=== PATIENT | male | born 1945 | race Hispanic/Latino ===

== ENCOUNTER 2018-12-03 03:02 | Observation (INO) | payer OTHER ==
[~2018-12-03] VITALS: Ht 182.9 cm; Wt 99.2 kg
[2018-12-03] MEDS ORDERED: ONDANSETRON HCL 4 MG/2 ML VIAL ONE (03:54)
[2018-12-03] MEDS ORDERED: SODIUM CHLORIDE 0.9% 1000ML 1,000 ML IV ONE (03:55)
[2018-12-03 04:20] LABS: BASOPHILS % (AUTO) 0.5 % (0.0-5.0); EOSINOPHILS % (AUTO) 0.8 % (0.0-8.0); HEMATOCRIT 47.1 % (42-54); LYMPHOCYTES % (AUTO) 2.8 % (21.0-51.0); MEAN CORPUSCULAR HEMOGLOBIN 32.7 pg (27.0-33.0); MEAN CORPUSCULAR HGB CONC 34.6 g/dL (32.0-36.0); MEAN CORPUSCULAR VOLUME 94.5 fL (79-99); MONOCYTES % (AUTO) 4.7 % (3.0-13.0); NEUTROPHILS % (AUTO) 91.2 % (40.0-77.0); PLATELET COUNT (AUTO) 124 K/uL (130-400); RED BLOOD CELL COUNT(AUTO) 4.98 MIL/uL (4.50-6.20); RED CELL DISTRIBUTION WIDTH 13.4 % (11.0-15.5); WHITE BLOOD COUNT (AUTO) 8.6 K/uL (4.8-10.8)
[2018-12-03 04:25] LABS: APPEARANCE,URINE Clear (CLEAR); BILIRUBIN,URINE Negative (NEGATIVE); COLOR,URINE Yellow (YELLOW); GLUCOSE, URINE (UA) Negative (NEGATIVE); KETONES,URINE Trace mg/dL (NEGATIVE); LEUKOCYTE ESTERASE ,URINE Trace (NEGATIVE); NITRATE,URINE Negative (NEGATIVE); OCCULT BLOOD,URINE Negative (NEGATIVE); PROTEIN,URINE Negative (NEGATIVE)
[2018-12-03] MEDS ORDERED: SODIUM CHLORIDE 0.9% 1000ML 2,000 ML IV ONE (04:25)
[2018-12-03 04:29] LABS: CREATININE 0.9 mg/dL (0.5-1.5); POTASSIUM 3.9 mmol/L (3.5-5.1)
[2018-12-03 04:31] LABS: INR 1.02 (0.85-1.15); PARTIAL THROMBOPLASTIN TIME 24.3 SEC (26.3-35.5); PROTHROMBIN TIME 10.7 SEC (9.6-11.6)
[2018-12-03] MEDS ORDERED: ACETAMINOPHEN EXTRA STRENGTH 500 MG TABLET ONE (04:31)
[2018-12-03 04:34] LABS: BACTERIA,URINE None Seen /HPF (None Seen); RBC,URINE None Seen /HPF (0-1); SQUAMOUS EPITHELIAL CELL,UR Few /HPF (0-2); WBC,URINE 0-1 /HPF (0-1)
[2018-12-03 04:36] LABS: ALBUMIN 3.6 g/dL (3.5-5.0); BILIRUBIN,TOTAL 0.8 mg/dL (0.2-1.0); TOTAL PROTEIN, SERUM 7.1 g/dL (6.0-8.3)
[2018-12-03] MEDS ORDERED: METRONIDAZOLE 500MG/100ML BAG 100 ML ONE (05:16)
[2018-12-03] MEDS ORDERED: ONDANSETRON HCL 4 MG/2 ML VIAL IVP PRN (05:45)
[2018-12-03] MEDS ORDERED: GLUCAGON 1MG KIT 1 MG ML IM PRN ×2 (05:45→09:30)
[2018-12-03] MEDS ORDERED: ACETAMINOPHEN 325 MG TAB PO PRN ×2 (05:45→09:30)
[2018-12-03] MEDS ORDERED: DEXTROSE 50%-WATER 50 ML DISP.SYRIN IV PRN ×2 (05:45→09:30)
[2018-12-03 08:30] VITALS: BP 106/58
[2018-12-03] MEDS ORDERED: TRAM50TA4 PO ×2 (08:46→08:49)
[2018-12-03] MEDS ORDERED: PREG75 PO (08:46)
[2018-12-03] MEDS ORDERED: LEVO125T11 PO (08:46)
[2018-12-03] MEDS ORDERED: METF-444 PO (08:46)
[2018-12-03] MEDS ORDERED: UMEC1DIS IH (08:46)
[2018-12-03] MEDS ORDERED: ROSU10TA28 PO (08:46)
[2018-12-03] MEDS ORDERED: ASPI-555 PO (08:46)
[2018-12-03] MEDS ORDERED: OLME5TAB6 PO (08:46)
[2018-12-03] MEDS ORDERED: IPRA3AMP24 IH (08:46)
[2018-12-03] MEDS ORDERED: CPAP NOTE (08:49)
[2018-12-03] MEDS ORDERED: DiphenhydrAMINE HCL 50 MG/ML VIAL IV PRN (09:30)
[2018-12-03] MEDS ORDERED: LIDOCAINE HCL-MPF 1% 2ML VIAL IJ PRN (09:30)
[2018-12-03] MEDS ORDERED: [UNRECOGNIZED DRUG - OTHER] NOTE SCH (09:30)
[2018-12-03] MEDS ORDERED: ALBUTEROL SULFATE 0.083% 2.5 MG/3 ML INH IH PRN (09:30)
[2018-12-03] MEDS ORDERED: DIPHENHYDRAMINE HCL 25 MG CAPSULE PO PRN (09:30)
[2018-12-03] MEDS ORDERED: POTASSIUM CHLORIDE 20 MEQ ERTAB PO PRN (09:30)
[2018-12-03] MEDS ORDERED: MAG HYDROX/AL HYDROX/SIMETH ES 30 ML SUSP UDCUP PO PRN (09:30)
[2018-12-03] MEDS ORDERED: POTASSIUM CHLORIDE 10% ELIXIR 20 MEQ/15 ML UDCUP PO PRN (09:30)
[2018-12-03] MEDS ORDERED: POTASSIUM CHLORIDE 20MEQ/100ML 100 ML IV PRN (09:30)
[2018-12-03] MEDS: LEVOTHYROXINE 125 MCG TABLET PO SCH (10:58)
[2018-12-03] MEDS: IPRATROPIUM/ALBUTEROL SULFATE 3 ML SOLUTION IH SCH ×3 (11:03→23:11)
[2018-12-03] MEDS ORDERED: INSULIN HUMULIN R 100 UNIT/ML 3ML SQ SCH (11:30)
[2018-12-03 12:00] VITALS: BP 123/69
[2018-12-03] MEDS: INSULIN R PO SS1 SQ SCH ×2 (16:30→21:00)
[2018-12-03] MEDS: SODIUM CHLORIDE 0.9% 1000ML 1,000 ML IV SCH ×2 (17:00→23:45)
[2018-12-03] MEDS: BUDESONIDE 0.5 MG/2 ML INH IH SCH (18:40)
--- NOTE | 2018-12-03 18:55 | NUR ---
NURSING NOTE Received patient from ER at 0830. Stable. No nausea, emesis or diarrhea so far. He was made aware a sample of stool was pending and a nun's hat provided in the restroom but patient removed it and used the toilket instead; unable to collect sample. Patient ws reminded that he needed to use nun's cap to collect stool sample to sent to lab; he verbalized and demonstrated understanding; pending for stool sample to be collected. Dr. Alejandre did her rounds earlier. Patient has been receiving intravenous fluids of normal saline at 125mL/hr to right hand; no issues. Patient at this time states he feels much better. Dr. Alejandre has him under observation status.
[2018-12-03 19:58] VITALS: BP 134/73
[2018-12-03] MEDS ORDERED: ALPRAZOLAM 1 MG TAB ONE (20:39)
[2018-12-03] MEDS: FAMOTIDINE 20MG TAB 20 MG TAB PO SCH (20:53)
[2018-12-03] MEDS ORDERED: ALPRAZOLAM 1 MG TAB PO ONE (22:05)
[2018-12-03 23:07] VITALS: BP 128/71
[2018-12-04 03:27] VITALS: BP 138/68
[2018-12-04] MEDS: SODIUM CHLORIDE 0.9% 1000ML 1,000 ML IV SCH (05:45)
[2018-12-04] MEDS: LEVOTHYROXINE 125 MCG TABLET PO SCH (05:50)
[2018-12-04] MEDS: INSULIN R PO SS1 SQ SCH ×2 (05:50→11:30)
[2018-12-04] MEDS: IPRATROPIUM/ALBUTEROL SULFATE 3 ML SOLUTION IH SCH (06:30)
[2018-12-04] MEDS: BUDESONIDE 0.5 MG/2 ML INH IH SCH (06:30)
--- NOTE | 2018-12-04 06:35 | NUR ---
PATIENT UPDATE Pt slept well overnight. Dr. Alejandre called last night after the pt noted very anxious on rounds and wanting to know if he could have xanax, order received for 1mg tab of xanax which afforded relief of anxiety. Slept well overnight, no diarrhea, no nausea and vomiting. Continues with the ivf of NS at 125 cc's per hour. Spiked a temp of 102.8 at 0400, pt's room hot and he's covered with 2 blankets, cooling measures reinforced. Tylenol gr x given, latest temp at 99.8. No complaints of pain, no signs of congestion, on duonebs tx as per order.
[2018-12-04 08:04] VITALS: BP 137/93
[2018-12-04] MEDS ORDERED: OLMESARTAN MEDOXOMIL 5 MG PO SCH (09:00)
[2018-12-04] MEDS ORDERED: ENOXAPARIN SODIUM 30 MG/0.3 ML SQ SCH (09:00)
[2018-12-04] MEDS ORDERED: NON-FORMULARY MEDICATION 1 EACH (Umeclidinium Brm/Vilanterol Tr (Anoro Ellipta 62.5-25 Mcg IH SCH (09:00)
[2018-12-04] MEDS: FAMOTIDINE 20MG TAB 20 MG TAB PO SCH (09:04)
--- NOTE | 2018-12-04 11:44 | NUR ---
DC HOME DC INSTRUCTIONS GIVEN TO PT AND FAMILY MEMBERS X 2. VERBALIZED UNDERSTANDING. MED REVIEW GIVEN VIA TEACHBACK METHOD. PT HAS NO NEW PRESCRIPTIONS AT THIS TIME. PT VS WNL, [id number]. INBOUND SALES REPRESENTATIVE ACCOMPANYING PT TO VEHICLE.
[2018-12-04 12:00] VITALS: BP 112/57
== END 2018-12-04 11:55 | disposition home or self-care (01) ==
LOC: EDH 03:02 → EDHIP 05:20 → 3DH 08:25
PROVIDERS: ADMIT Internal Medicine; ATTEND Internal Medicine
DX: K52.9 Noninfective gastroenteritis and colitis, unspecified (principal); E86.0 Dehydration; I13.10 Hypertensive heart and chronic kidney disease without heart failure, with stage 1 through stage 4 chronic kidney disease, or unspecified chronic kidney disease; E11.21 Type 2 diabetes mellitus with diabetic nephropathy; E11.22 Type 2 diabetes mellitus with diabetic chronic kidney disease; N18.2 Chronic kidney disease, stage 2 (mild); I50.9 Heart failure, unspecified; E11.51 Type 2 diabetes mellitus with diabetic peripheral angiopathy without gangrene; E11.69 Type 2 diabetes mellitus with other specified complication; E78.1 Pure hyperglyceridemia; E11.618 Type 2 diabetes mellitus with other diabetic arthropathy; E11.65 Type 2 diabetes mellitus with hyperglycemia; E78.2 Mixed hyperlipidemia; G47.33 Obstructive sleep apnea (adult) (pediatric); I25.10 Atherosclerotic heart disease of native coronary artery without angina pectoris; E03.9 Hypothyroidism, unspecified; J30.9 Allergic rhinitis, unspecified; J44.9 Chronic obstructive pulmonary disease, unspecified; M48.061 Spinal stenosis, lumbar region without neurogenic claudication; N40.0 Benign prostatic hyperplasia without lower urinary tract symptoms; Z86.010 Personal history of colon polyps; Z87.891 Personal history of nicotine dependence; Z98.84 Bariatric surgery status; Z79.82 Long term (current) use of aspirin; Z79.899 Other long term (current) drug therapy
CPT/HCPCS: 36415; 71045; 80053; 81001; 82550; 82948 ×5; 83605; 84484; 85025; 85610; 85730; 87040 ×2; 87088; 87804 ×2; 93005; 94640 ×6; 94664; 96361; 96372; 96374; 99284; G0378 ×26; J1650; J2405 ×2; J3490; J7030 ×3

== ENCOUNTER → 2019-01-06 | Outpatient (CLI) | payer OTHER ==
[~2019-01-06] MED LIST: ASPI-555 PO; CPAP NOTE; IPRA3AMP24 IH; LEVO125T11 PO; METF-444 PO; OLME5TAB6 PO; PREG75 PO; ROSU10TA28 PO; TRAM50TA4 PO; UMEC1DIS IH
== END | disposition home or self-care (01) ==
LOC: RAH 14:59
PROVIDERS: ATTEND Neuromusculoskeletal Medicine & OMM
DX: M47.816 Spondylosis without myelopathy or radiculopathy, lumbar region (principal); M41.85 Other forms of scoliosis, thoracolumbar region; M25.78 Osteophyte, vertebrae; M48.07 Spinal stenosis, lumbosacral region
CPT/HCPCS: 72114

== ENCOUNTER → 2019-09-18 | Outpatient (CLI) | payer OTHER ==
[~2019-09-18] MED LIST changes: -ASPI-555 PO; +ASPI-556 PO
== END | disposition home or self-care (01) ==
LOC: RAH 12:13
PROVIDERS: ATTEND Internal Medicine
DX: Z01.810 Encounter for preprocedural cardiovascular examination (principal); R91.8 Other nonspecific abnormal finding of lung field
CPT/HCPCS: 71046

== ENCOUNTER → 2021-06-08 | Outpatient (CLI) | payer OTHER | END | disposition home or self-care (01) | LOC: RAH 11:22 | PROVIDERS: ATTEND Internal Medicine | DX: Z01.811 Encounter for preprocedural respiratory examination (principal); I13.10 Hypertensive heart and chronic kidney disease without heart failure, with stage 1 through stage 4 chronic kidney disease, or unspecified chronic kidney disease; N18.9 Chronic kidney disease, unspecified | CPT/HCPCS: 71046 ==

== ENCOUNTER 2023-03-26 15:55 | Emergency (ER) | payer OTHER ==
[~2023-03-26] VITALS: Ht 182.9 cm; Wt 103.4 kg
[~2023-03-26 15:55] MED LIST changes: +OLME5TAB29 PO; -OLME5TAB6 PO
[2023-03-26] MEDS ORDERED: ACETAMINOPHEN 325 MG TAB ONE (16:45)
[2023-03-26 16:47] VITALS: TEMP 102.7
[2023-03-26] MEDS ORDERED: ACETAMINOPHEN 325 MG TAB PO ONE (17:00)
[2023-03-26 17:24] LABS: BASOPHILS # (AUTO) 0.04 K/uL (0.00-0.20); BASOPHILS % (AUTO) 0.5 % (0.0-5.0); EOSINOPHILS # (AUTO) 0.04 K/uL (0.00-0.70); EOSINOPHILS % (AUTO) 0.5 % (0.0-8.0); HEMATOCRIT 45.9 % (42-54); IMMATURE GRANULOCYTE ABSOLUTE 0.02 K/uL (0-1); LYMPHOCYTES # (AUTO) 0.6 K/uL (1.0-4.8); LYMPHOCYTES % (AUTO) 7.1 % (21.0-51.0); MEAN CORPUSCULAR HEMOGLOBIN 31.1 pg (27.0-33.0); MEAN CORPUSCULAR HGB CONC 34.2 g/dL (32.0-36.0); MEAN CORPUSCULAR VOLUME 90.9 fL (79-99); MONOCYTES # (AUTO) 0.6 K/uL (0.1-1.0); MONOCYTES % (AUTO) 7.9 % (3.0-13.0); NEUTROPHILS # (AUTO) 6.6 K/uL (1.8-7.7); NEUTROPHILS % (AUTO) 83.7 % (40.0-77.0); PLATELET COUNT (AUTO) 119 K/uL (130-400); RED BLOOD CELL COUNT(AUTO) 5.05 MIL/uL (4.50-6.20); RED CELL DISTRIBUTION WIDTH 13.2 % (11.0-15.5); WHITE BLOOD COUNT (AUTO) 7.8 K/uL (4.8-10.8)
[2023-03-26 17:32] LABS: POTASSIUM 3.7 mmol/L (3.5-5.1)
[2023-03-26 17:36] LABS: ALBUMIN 3.8 g/dL (3.5-5.0); TOTAL PROTEIN, SERUM 7.6 g/dL (6.0-8.3)
[2023-03-26] MEDS ORDERED: IBUPROFEN 600 MG TABLET PO ONE (20:00)
[2023-03-26] MEDS ORDERED: 0.9%NACL 1000ML 1,000 ML IV ONE (20:00)
[2023-03-26 22:36] LABS: INFLUENZA TYPE A Negative For Type A (NEGATIVE); INFLUENZA TYPE B Negative For Type B (NEGATIVE); SARS-CoV-2, RNA, NAAT POSITIVE SARS CoV-2 (NEGATIVE)
[2023-03-26] MEDS ORDERED: BENZ-39 PO (22:40)
[2023-03-26] MEDS ORDERED: FLUT16H NASAL (22:40)
[2023-03-26 23:08] VITALS: BP 112/63; PULSE 73; RESP 18; O2SAT 97
== END 2023-03-26 23:10 | disposition home or self-care (01) ==
LOC: EDH 16:37
DX: U07.1 COVID-19 (principal); R50.9 Fever, unspecified; I10 Essential (primary) hypertension; E11.9 Type 2 diabetes mellitus without complications; E78.00 Pure hypercholesterolemia, unspecified; J44.9 Chronic obstructive pulmonary disease, unspecified; Z79.82 Long term (current) use of aspirin; Z79.84 Long term (current) use of oral hypoglycemic drugs; Z79.899 Other long term (current) drug therapy; Z98.890 Other specified postprocedural states
CPT/HCPCS: 99284; 96360; 71045; 87635; 80053; 85025; 87040 ×2; 87804 ×2; 83605; 36415; J7030